=== PATIENT | female | born 1970 | race Two or more races ===

== ENCOUNTER 2023-12-13 08:20 | Day surgery (SDC) | payer OTHER, MEDICAID ==
[2023-12-11 11:23] LABS: Urine Bacteria None Seen /hpf (None Seen)
[2023-12-11 11:38] LABS: Basophils # (auto) 0 10 ^3/uL (0-0.2); Basophils % (auto) 0.4 % (0.0-2.0); Eosinophils # (auto) 0.3 10 ^3/uL (0-0.8); Hemoglobin 14.6 g/dL (12.2-16.2); Lymphocytes # (auto) 2.3 10 ^3/uL (0.4-5.4); Lymphocytes % (auto) 24.4 % (10.0-50.0); Mean Corpuscular Hemoglobin 28.8 pg (28.0-32.0); Mean Corpuscular Hgb Conc. 33.3 g/dL (32.0-36.0); Mean Corpuscular Volume 86.7 fL (80.0-100.0); Monocytes # (auto) 0.6 10 ^3/uL (0-1.3); Monocytes % (auto) 5.8 % (0.0-12.0); Neutrophils # (auto) 6.4 10 ^3/uL (1.6-8.6); Neutrophils % (auto) 66.4 % (37.0-80.0); Red Blood Cells 5.08 10^6/uL (4.0-5.20); Red Cell Distribution Width 13.9 % (11.8-14.3); White Blood Cell 9.6 10^3/uL (4.4-10.8)
[2023-12-11 11:44] LABS: Urine Blood Negative /uL (Negative); Urine Clarity Clear (Clear); Urine Color Light-Yellow (Yellow); Urine Protein, UAD Negative (Negative); Urine Specific Gravity 1.024 (1.001-1.035); Urine Urobilinogen Normal (Negative); Urine WBC 20 /hpf (0 - 5)
[2023-12-11 12:06] LABS: INR 0.99 (0.9-1.15); Partial Thromboplastin Time 27.1 SEC (24.5-34.5); Prothrombin Time 10.5 sec (9.3-11.8)
[2023-12-11 12:15] LABS: Alanine Aminotransferase 20 U/L (7-40); Alkaline Phosphatase 98 U/L (46-116); Calcium 10.1 mg/dL (8.5-10.1); Carbon Dioxide 33 mmol/L (20-30); Chloride 102 mmol/L (98-107); Glucose 120 mg/dL (74-106); Potassium 3.4 mmol/L (3.5-5.1)
[2023-12-11 12:16] LABS: Albumin 4.7 g/dL (3.2-4.8); Anion Gap 4 (5-15); Aspartate Aminotransferase 21 U/L (13-40); BUN/Creatinine Ratio 25.3 (10.0-20.0); Bilirubin, Total 0.3 mg/dL (0.2-1.0); Blood Urea Nitrogen 22 mg/dL (9-23); Sodium 139 mmol/L (136-145); Total Protein 7.6 g/dL (5.7-8.2)
[~2023-12-13] VITALS: Ht 154.9 cm; Wt 99.8 kg
[~2023-12-13 08:20] MED LIST: ATOR-507 PO; BUSP15TA60 PO; CETI10TA2 PO; DICY20TA PO; DULA4.5I SC; DULO60CA41 PO; ERTU15TA PO; FURO1TAB31 PO; GLIP10TA9 PO; HYDR-3682 PO; HYDR-4902 PO; HYDR25TA4 PO; INSU100I49 SC; INSU1INJ19 SC; LISI2.5T47 PO; METF-371 PO; ONDA-155 PO; PANT40TA2 PO; PIO30T PO; TRAZ-181 PO
[2023-12-13] MEDS ORDERED: LIDOCAINE 2% (LOCAL ANESTH.) PF 5ml SDV ONE (11:16)
[2023-12-13] MEDS ORDERED: PROPOFOL 10 MG/ML 20 ML IV ONE ×2 (11:16→11:32)
[2023-12-13 11:40] VITALS: TEMP 98; O2SAT 100
[2023-12-13 12:17] VITALS: BP 130/51; PULSE 68; RESP 18; O2SAT 97
== END 2023-12-13 12:25 | disposition home or self-care (01) ==
LOC: GI 08:20
PROVIDERS: ATTEND Internal Medicine Gastroenterology
DX: K59.00 Constipation, unspecified (principal); D12.4 Benign neoplasm of descending colon; K64.8 Other hemorrhoids; K29.50 Unspecified chronic gastritis without bleeding; R10.9 Unspecified abdominal pain; R14.0 Abdominal distension (gaseous); I10 Essential (primary) hypertension; E11.9 Type 2 diabetes mellitus without complications; K21.9 Gastro-esophageal reflux disease without esophagitis; G47.33 Obstructive sleep apnea (adult) (pediatric); F41.8 Other specified anxiety disorders; E66.09 Other obesity due to excess calories; Z68.41 Body mass index [BMI] 40.0-44.9, adult; Z79.4 Long term (current) use of insulin; Z79.84 Long term (current) use of oral hypoglycemic drugs; Z79.899 Other long term (current) drug therapy; Z98.890 Other specified postprocedural states
CPT/HCPCS: 36415; 43239; 45385; 80053; 81001; 82962; 85025; 85610; 85730; 88305; 88312; 88342; J2001; J2704; J7030

== ENCOUNTER → 2024-03-14 | Outpatient (CLI) | payer OTHER, MEDICAID | END | disposition home or self-care (01) | LOC: XYW 09:18 | PROVIDERS: ATTEND Student in an Organized Health Care Education/Training Program | DX: I77.9 Disorder of arteries and arterioles, unspecified (principal) | CPT/HCPCS: 93925 ==